=== PATIENT | male | born 1955 | race Hispanic/Latino ===

== ENCOUNTER 2023-10-26 23:55 | Emergency (ER) | payer OTHER ==
--- OUTSIDE RECORDS SUMMARY | 2023-10-26 23:58 | XMS REPORT | Continuity of Care Document ---
Author Name Unknown Address [address] [facility] [address] [place] [address] [facility] thconnect Address 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 Exposure to SARS-CoV-2 (event) 2019-12-16 00:00:00 2020-01-15 10:23:00 Not sure [facility] Sex Assigned At 1955 00:00:00 1955 00:00:00 [facility] Smoking Status Start Date Stop Date Source Tobacco smoking consumption unknown [facility] Encounters Start Date/Time End Date/Time Encounter Type Admission Type Attending Clinicians Care Facility Care Department Encounter ID Source 2023-10-16 13:20:53 2023-10-16 13:20:53 Outpatient [facility] [id number] Jayce Xiao 2023-09-30 15:18:26 2023-09-30 15:18:26 Outpatient S[facility] [id number] [id number] Jayce Xiao 2023-08-14 16:17:34 2023-08-14 16:17:34 Outpatient SFA SFA [id number] Jayce Xiao 2023-06-24 08:40:56 2023-06-24 08:40:[address] [facility] [id number] Jayce Xiao 2022-12-21 07:10:25 2022-12-21 07:10:[address] [facility] [id number] Jayce Xiao 2020-01-18 00:00:00 2020-01-18 00:00:00 Patient Secure Msg Doctor Unassigned, Wickes [facility] [id number] [facility] 2020-01-15 14:20:00 2020-01-15 14:20:00 Outpatient [facility] [id number] [facility]
[2023-10-27] MEDS ORDERED: ASPIRIN 81 MG CHEWABLE TABLET ONE (00:48)
[2023-10-27] MEDS ORDERED: ONDANSETRON 4 MG/2 ML VIAL ONE (00:48)
[2023-10-27] MEDS ORDERED: MORPHINE 4 MG/ML SYR ONE (00:49)
[2023-10-27] MEDS ORDERED: DIAZEPAM 5 MG TABLET ONE (00:49)
[2023-10-27 00:51] LABS: Absolute Eosinophils 0.1 K/uL (0-0.5); Absolute Lymphocytes (CBC) 2.7 K/uL (0.7-4.9); Absolute Monocytes 0.6 K/uL (0.1-1.3); Absolute Neutrophil 3.8 K/uL (1.8-8.0); Basophils % 0.5 % (0-1.3); Eosinophils % 1.2 % (0-4.4); Hematocrit 47.9 % (39.6-49.0); Hemoglobin 16.3 g/dL (13.6-17.9); Lymphocytes % 37.3 % (15.3-44.8); MCH 30.5 pg (27.0-35.0); MCV 89.7 fL (80-100); MPV 8.8 fL (7.6-11.3); Monocytes % 7.7 % (3.3-12.3); Neutrophils % 53.3 % (41.7-73.7); Nucleated Red Blood Cells % 0.1 % (0-0); Platelets 189 thou/uL (152-406); RBC Red Blood Cell Count 5.35 M/uL (4.33-5.43); Red Cell Distribution Width 14.3 % (12.1-15.2)
[2023-10-27 00:58] LABS: PT Prothrombin Time 11.9 SECONDS (9.5-12.5); Protime INR 1.08
[2023-10-27 01:13] LABS: Albumin 3.9 g/dL (3.4-5.0); Albumin/Globulin Ratio 1.1 (1.1-1.8); Anion Gap 9.8 mEq/L (5.0-15.0); Bilirubin Direct 0.2 mg/dL (0-0.2); Bilirubin Indirect, Calculated 0.5 mg/dL (0.2-0.8); Bilirubin Total 0.7 mg/dL (0.2-1.0); Globulin 3.5 g/dL (2.3-3.5); Magnesium 2.1 mg/dL (1.6-2.4); Potassium 3.8 mEq/L (3.5-5.1); Protein, Total 7.4 g/dL (6.4-8.2); Troponin High Sensitivity 6.6 pg/mL (<58.9)
--- NOTE | 2023-10-27 05:57 | ER ---
Nurse's Notes [facility] Name: Aakash Weaver Age: 68 yrs Sex: Male : 1955 Arrival Date: 10/26/2023 Time: 23:55 Bed 13 Private MD: Diagnosis: Tension-type headache;Chest pain, unspecified Presentation: 10/26 00:02 Chief complaint: Patient states: chest pain and pressure. Tingling to left side of face vc1 and left arm. Coronavirus screen: At this time, the client does not indicate any symptoms associated with coronavirus-19. Ebola Screen: Patient negative for fever greater than or equal to 101.5 degrees Fahrenheit, and additional compatible Ebola Virus Disease symptoms Patient denies exposure to infectious person. Patient denies travel to an Ebola-affected area in the 21 days before illness onset. No symptoms or risks identified at this time. Risk Assessment: Do you want to hurt yourself or someone else? Patient reports no desire to harm self or others. Onset of symptoms was October 26, 2023. 00:02 Method Of Arrival: Ambulatory vc1 00:02 Acuity: JOSE ENRIQUE 3 vc1 00:06 Initial Sepsis Screen: Does the patient meet any 2 criteria? No. Patient's initial vc1 sepsis screen is negative. Does the patient have a suspected source of infection? No. Patient's initial sepsis screen is negative. Triage Assessment: 00:04 General: Appears in no apparent distress. uncomfortable, Behavior is calm, cooperative, vc1 appropriate for age. Pain: Complains of pain in anterior aspect of left upper chest Pain does not radiate. Pain currently is 8 out of 10 on a pain scale. Quality of pain is described as pressure, Is continuous, Also complains of shortness of breath. Neuro: Level of Consciousness is awake, alert, obeys commands, Tingling in left cheek and left arm. Cardiovascular: Capillary refill < 3 seconds Patient's skin is warm and dry. Respiratory: Airway is patent Respiratory effort is even, unlabored, Respiratory pattern is regular, symmetrical. Musculoskeletal: Denies weakness in left arm and left leg numbness in, left cheek and left arm. Historical: - Allergies: 00:03 No Known Allergies; vc1 - Home Meds: 00:03 levothyroxine 88 mcg capsule [Active]; mirtazapine 15 mg Oral tablet [Active]; vc1 - PMHx: 00:03 Hypothyroidism; Depressive disorder; vc1 - PSHx: 00:03 None; vc1 - Immunization history:: Client reports receiving the 2nd dose of the Covid vaccine, Flu vaccine is up to date. - Infectious Disease History:: Denies. - Social history:: Smoking status: Patient denies any tobacco usage or history of. - Family history:: not pertinent. Screenin:01 Abuse screen: Denies threats or abuse. Denies injuries from another. Nutritional ha1 screening: No deficits noted. Tuberculosis screening: No symptoms or risk factors identified. 04:10 [facility] ED Fall Risk Assessment (Adult) History of falling in the last 3 months, ha1 including since admission No falls in past 3 months (0 pts) Confusion or Disorientation No (0 pts) Intoxicated or Sedated No (0 pts) Impaired Gait No (0 pts) Mobility Assist Device Used No (0 pt) Altered Elimination No (0 pt) Score/Fall Risk Level 0 - 2 = Low Risk Oriented to surroundings, Maintained a safe environment, Educated pt \T\ family on fall prevention, incl call for assistance when getting out of bed, Hourly rounding (assess needs \T\ fall precautionary measures) done. Assessment: 00:08 General: Appears comfortable, Behavior is calm, cooperative. Pain: Complains of pain in ha1 chest Pain radiates to left arm Pain currently is 8 out of 10 on a pain scale. Quality of pain is described as pressure, Pain began suddenly. Neuro: Level of Consciousness is awake, alert, obeys commands, Oriented to person, place, time, situation. Cardiovascular: Reports chest pain, Capillary refill < 3 seconds Patient's skin is warm and dry. Rhythm is sinus bradycardia. Respiratory: Airway is patent Respiratory effort is even, unlabored, Respiratory pattern is regular, symmetrical. Derm: Skin is pink, warm \T\ dry. Musculoskeletal: Circulation, motion, and sensation intact. 00:55 Reassessment: GOING TO CT. ha1 01:20 Reassessment: Patient and/or family updated on plan of care and expected duration. Pain ha1 level reassessed. Patient is alert, oriented x 3, equal unlabored respirations, skin warm/dry/pink. BACK FROM CT. 02:04 Reassessment: Patient and/or family updated on plan of care and expected duration. Pain ha1 level reassessed. Patient is alert, oriented x 3, equal unlabored respirations, skin warm/dry/pink. Patient states feeling better. Patient states symptoms have improved. 03:00 Reassessment: Patient and/or family updated on plan of care and expected duration. Pain ha1 level reassessed. Patient is alert, oriented x 3, equal unlabored respirations, skin warm/dry/pink. PAIN 2/10. 04:00 Reassessment: Patient and/or family updated on plan of care and expected duration. Pain ha1 level reassessed. Patient is alert, oriented x 3, equal unlabored respirations, skin warm/dry/pink. Patient denies pain at this time. Patient states feeling better. Patient states symptoms have improved. 04:55 Reassessment: Patient and/or family updated on plan of care and expected duration. Pain ha1 level reassessed. Patient is alert, oriented x 3, equal unlabored respirations, skin warm/dry/pink. Patient denies pain at this time. Patient states feeling better. Patient states symptoms have improved. 06:06 Reassessment: Patient appears in no apparent distress at this time. No changes from vc1 previously documented assessment. Patient and/or family updated on plan of care and expected duration. Pain level reassessed. Patient is alert, oriented x 3, equal unlabored respirations, skin warm/dry/pink. Vital Signs: 00:06 BP 124 / 78; Pulse 60; Resp 18; Temp 97.4; Pulse Ox 100% ; vc1 00:40 BP 136 / 75; Pulse 55; Resp 17 S; Pulse Ox 99% on R/A; ha1 02:00 BP 101 / 70; Pulse 48; Resp 18; Pulse Ox 97% on R/A; ha1 03:00 BP 124 / 74; Pulse 45; Resp 17 S; Pulse Ox 99% on R/A; ha1 04:00 BP 118 / 76; Pulse 48; Resp 17 S; Pulse Ox 98% on R/A; ha1 05:03 BP 126 / 75; Pulse 51; Resp 16 S; Pulse Ox 98% on R/A; ha1 06:00 BP 106 / 63; Pulse 50; Resp 16; Pulse Ox 96% ; vc1 Gil Coma Score: 05:54 Eye Response: spontaneous(4). Motor Response: obeys commands(6). Verbal Response: sp4 oriented(5). Total: 15. NIH Stroke Scale Scores: 05:54 NIHSS Score: 0 sp4 ED Course: 00:01 Patient arrived in ED. vc1 00:02 Ridge Saunders MD is Attending Physician. sp4 00:03 Triage completed. vc1 00:04 Arm band placed on right wrist. vc1 00:08 Patient has correct armband on for positive identification. Placed in gown. Bed in low ha1 position. Call light in reach. Side rails up X 1. 00:08 Client placed on continuous cardiac and pulse oximetry monitoring. NIBP monitoring ha1 applied. tapper shank on. Door closed. Noise minimized. Warm blanket given. 00:15 EKG completed in triage. Results shown to MD. ha1 00:15 EKG done, by ED staff, reviewed by Ridge Saunders MD. ha1 00:20 Kylah Garber, RN is Primary Nurse. ha1 00:30 Inserted saline lock: 20 gauge in right antecubital area, using aseptic technique. ha1 Blood collected. 00:59 XRAY Chest (1 view) In Process Unspecified. EDMS 00:59 Basic Metabolic Panel Sent. ha1 00:59 LFT's Sent. ha1 00:59 Magnesium Sent. ha1 00:59 NT PRO-BNP Sent. ha1 00:59 Troponin HS Sent. ha1 01:11 CT Head Brain wo Cont In Process Unspecified. EDMS 05:04 Troponin High Sensitivity Sent. ha1 06:06 No provider procedures requiring assistance completed. IV discontinued, intact, vc1 bleeding controlled, No redness/swelling at site. Pressure dressing applied. 06:07 Provided Education on: f/u with PCP. vc1 Administered Medications: 00:45 Drug: Ondansetron IVP 4 mg IVP once; over 2 minutes Route: IVP; Site: right antecubital;ha1 01:00 Follow up: Response: No adverse reaction; Marked relief of symptoms ha1 00:47 Drug: morphine IVP or IV 4 mg IVP once over 4 mins Route: IVP; Infused Over: 4 mins; ha1 Site: right antecubital; 01:00 Follow up: Response: No adverse reaction; Marked relief of symptoms; Pain is decreased; ha1 RASS: Alert and Calm (0) 00:49 Drug: Aspirin PO Chewable Tablet 324 mg PO once; 81 mg tablets x 4 Route: PO; ha1 02:00 Follow up: Response: No adverse reaction; Marked relief of symptoms ha1 00:50 Drug: Diazepam PO 5 mg PO once Route: PO; ha1 01:10 Follow up: Response: No adverse reaction; Marked relief of symptoms ha1 Medication: 04:10 VIS not applicable for this client. ha1 Outcome: 05:56 Discharge ordered by MD. potts 06:06 Discharged to home ambulatory, vc1 06:06 Condition: good 06:06 Discharge instructions given to patient, Instructed on discharge instructions, follow up and referral plans. medication usage, Demonstrated understanding of instructions, follow-up care, medications, Prescriptions given X 2, 06:07 Patient left the ED. vc1 NIH Stroke Scale - NIH Stroke Score Date: 10/27/2023 Time: 05:54 Total Score = 0 10. Dysarthria (speech clarity - read or repeat words) - 0(Normal) 11. Extinction and Inattention (visual/tactile/auditory/spatial/personal) - 0(No abnormality) 1a. Level of Consciousness (LOC) - 0(Alert) 1b. Level of Consciousness (LOC) (Month \T\ Age) - 0(Both) 1c. LOC Commands (Open \T\ Closes Eyes/President & Founder) - 0(Both) 2. Best Gaze (Lateral Gaze Paresis) - 0(Normal) 3. Visual Field Loss - 0(No visual loss) 4. Facial Palsy - 0(Normal) 5a. Left Arm: Motor (10-second hold) - 0(No drift) 5b. Right Arm: Motor (10-second hold) - 0(No drift) 6a. Left Leg: Motor (5-second hold - always test supine) - 0(No drift) 6b. Right Leg: Motor (5-second hold - always test supine) - 0(No drift) 7. Limb Ataxia (finger/nose \T\ heel/perdomo - test with eyes open) - 0(Absent) 8. Sensory Loss (pinprick arms/legs/face) - 0(Normal) 9. Best Language: Aphasia (description/naming/reading) - 0(No aphasia) Initials: sp4 Signatures: Dispatcher [employer] EDMS Anastasia Olson RN RN vc1 Kylah Garber RN RN ha1 Ridge Saunders MD MD sp4 Corrections: (The following items were deleted from the chart) 00:04 00:03 Home Meds: None; vc1 vc1 00:04 00:03 PMHx: None; vc1 vc1 02:04 01:01 BP 136 / 75; Pulse 55bpm; Resp 17bpm; Spontaneous; Pulse Ox 99% RA; ha1 ha1
--- NOTE | 2023-10-27 05:57 | EDPHYS ---
Physician Documentation [facility] Name: Aakash Weaver Age: 68 yrs Sex: Male : 1955 Arrival Date: 10/26/2023 Time: 23:55 Bed 13 Private MD: ED Physician Ridge Saunders HPI: 10/26 04:23 This 68 yrs old Male presents to ER via Ambulatory with complaints of left arm sp4 numbness and chest pain . 19:06 68-year-old male complains of chest discomfort and left arm numbness. This started sp4 yesterday.. Historical: - Allergies: 00:03 No Known Allergies; vc1 - Home Meds: 00:03 levothyroxine 88 mcg capsule [Active]; mirtazapine 15 mg Oral tablet [Active]; vc1 - PMHx: 00:03 Hypothyroidism; Depressive disorder; vc1 - PSHx: 00:03 None; vc1 - Immunization history:: Client reports receiving the 2nd dose of the Covid vaccine, Flu vaccine is up to date. - Infectious Disease History:: Denies. - Social history:: Smoking status: Patient denies any tobacco usage or history of. - Family history:: not pertinent. ROS: 19:06 Constitutional: Negative for fever, chills, and weight loss, positive for chest sp4 pressure and left arm numbness 19:06 All other systems are negative, Exam: 04:25 ECG was reviewed by the Attending Physician. EKG at 0034, sinus bradycardia with a rate sp4 of 52 05:54 Constitutional: This is a well developed, well nourished patient who is awake, alert, sp4 and in no acute distress. Head/Face: Normocephalic, atraumatic. Eyes: Pupils equal round and reactive to light, extra-ocular motions intact. Lids and lashes normal. Conjunctiva and sclera are not injected. Cornea within normal limits. Periorbital areas with no swelling, redness, or edema. ENT: Nares patent. No nasal discharge, no septal abnormalities noted. Tympanic membranes are normal and external auditory canals are clear. Oropharynx with no redness, swelling, or masses, exudates, or evidence of obstruction, uvula midline. Mucous membranes moist. Neck: Trachea midline, no thyromegaly or masses palpated, and no cervical lymphadenopathy. Supple, full range of motion without nuchal rigidity, or vertebral point tenderness. Chest/axilla: Normal chest wall appearance and motion. Nontender with no deformity. No lesions are appreciated. Cardiovascular: Regular rate and rhythm with a normal S1 and S2. No gallops, murmurs, or rubs. Normal PMI, no JVD. No pulse deficits. Respiratory: Lungs have equal breath sounds bilaterally, clear to auscultation and percussion. No rales, rhonchi or wheezes noted. No increased work of breathing, no retractions or nasal flaring. Abdomen/GI: Soft, with normal bowel sounds. No distension or tympany. No guarding or rebound. No evidence of tenderness throughout. Back: No spinal tenderness. No costovertebral tenderness. Skin: Warm, dry with normal turgor. Normal color with no rashes, no lesions, and no evidence of cellulitis. MS/ Extremity: Pulses equal, no cyanosis. Neurovascular intact. Full, normal range of motion. Neuro: Awake and alert, GCS 15, oriented to person, place, time, and situation. Cranial nerves II-XII grossly intact. Motor strength 5/5 in all extremities. Sensory grossly intact. Psych: Awake, alert, with orientation to person, place and time. Behavior, mood, and affect are within normal limits Vital Signs: 00:06 BP 124 / 78; Pulse 60; Resp 18; Temp 97.4; Pulse Ox 100% ; vc1 00:40 BP 136 / 75; Pulse 55; Resp 17 S; Pulse Ox 99% on R/A; ha1 02:00 BP 101 / 70; Pulse 48; Resp 18; Pulse Ox 97% on R/A; ha1 03:00 BP 124 / 74; Pulse 45; Resp 17 S; Pulse Ox 99% on R/A; ha1 04:00 BP 118 / 76; Pulse 48; Resp 17 S; Pulse Ox 98% on R/A; ha1 05:03 BP 126 / 75; Pulse 51; Resp 16 S; Pulse Ox 98% on R/A; ha1 06:00 BP 106 / 63; Pulse 50; Resp 16; Pulse Ox 96% ; vc1 NIH Stroke Scale Scores: 05:54 NIHSS Score: 0 sp4 Gil Coma Score: 05:54 Eye Response: spontaneous(4). Motor Response: obeys commands(6). Verbal Response: sp4 oriented(5). Total: 15. MDM: 00:05 Patient medically screened. sp4 04:23 ED course: EXAM: CT Head Without Intravenous Contrast CLINICAL HISTORY: The patient is sp4 68 years old and is Male; NUMBNESS TECHNIQUE: Axial computed tomography images of the head/brain without intravenous contrast. Sagittal and coronal reformatted images were created and reviewed. This CT exam was performed using one or more of the following dose reduction techniques: automated exposure control, adjustment of the mA and/or kV according to patient size, and/or use of iterative reconstruction technique. COMPARISON: No relevant prior studies available. FINDINGS: BRAIN: Unremarkable. The song-white matter differentiation is preserved . No hemorrhage. No significant white matter disease. No edema. No extra-axial fluid collections. VENTRICLES: Unremarkable. No ventriculomegaly. BONES/JOINTS: No acute fracture. SOFT TISSUES: Unremarkable. SINUSES: Unremarkable as visualized. No acute sinusitis. MASTOID AIR CELLS: Unremarkable as visualized. No mastoid effusion. ORBITS: Unremarkable as visualized. IMPRESSION: No acute intracranial findings. 04:24 ED course: EXAM: XR Chest, 1 View CLINICAL HISTORY: The patient is 68 years old and is sp4 Male; CHEST PAIN TECHNIQUE: Frontal view of the chest. COMPARISON: No relevant prior studies available. FINDINGS: LUNGS: Unremarkable. No consolidation. PLEURAL SPACE: Unremarkable. No pneumothorax. HEART: Unremarkable. No cardiomegaly. MEDIASTINUM: Unremarkable. Normal mediastinal contour. BONES/JOINTS: Unremarkable. No acute fracture. VASCULATURE: Atherosclerosis of the aorta is present. UPPER ABDOMEN: Unremarkable as visualized. IMPRESSION: No acute cardiopulmonary process. . 19:06 Differential Diagnosis altered mental status, sepsis, flu, ACS . Data reviewed: vital sp4 signs, nurses notes. ED course: Stable for discharge home no signs of ACS no signs of acute stroke. . 10/26 00:03 Order name: Basic Metabolic Panel; Complete Time: : sp4 10/26 00:03 Order name: CBC with Diff; Complete Time: : sp4 10/26 00:03 Order name: LFT's; Complete Time: : sp4 10/26 00:03 Order name: Magnesium; Complete Time: : sp4 10/26 00:03 Order name: NT PRO-BNP; Complete Time: : sp4 10/26 00:03 Order name: PT-INR; Complete Time: 04:22 4 10/26 00:03 Order name: Troponin HS; Complete Time: 04:22 4 10/26 04:26 Order name: Troponin High Sensitivity; Complete Time: 05:48 4 10/26 00:03 Order name: XRAY Chest (1 view) [facility] 10/26 00:03 Order name: CT Head Brain wo Cont 4 10/26 00:03 Order name: EKG; Complete Time: 00:03 [facility] 10/26 00:03 Order name: Cardiac monitoring; Complete Time: 00:56 [facility] 10/26 00:03 Order name: EKG - Nurse/Tech; Complete Time: 00:56 [facility] 10/26 00:03 Order name: IV Saline Lock; Complete Time: 00:56 [facility] 10/26 00:03 Order name: Labs collected and sent; Complete Time: 00:56 [facility] 10/26 00:03 Order name: O2 Per Protocol; Complete Time: 00:56 [facility] 10/26 00:03 Order name: O2 Sat Monitoring; Complete Time: 00:56 4 EC:25 Rate is 52 beats/min. Rhythm is regular, Sinus bradycardia. QRS Hamer is Normal. NE sp4 interval is normal. QRS interval is normal. QT interval is normal. No Q waves. T waves are Normal. Clinical impression: No evidence of ischemia. Interpreted by me. Reviewed by me. Administered Medications: 00:45 Drug: Ondansetron IVP 4 mg IVP once; over 2 minutes Route: IVP; Site: right antecubital;ha1 01:00 Follow up: Response: No adverse reaction; Marked relief of symptoms ha1 00:47 Drug: morphine IVP or IV 4 mg IVP once over 4 mins Route: IVP; Infused Over: 4 mins; ha1 Site: right antecubital; 01:00 Follow up: Response: No adverse reaction; Marked relief of symptoms; Pain is decreased; ha1 RASS: Alert and Calm (0) 00:49 Drug: Aspirin PO Chewable Tablet 324 mg PO once; 81 mg tablets x 4 Route: PO; ha1 02:00 Follow up: Response: No adverse reaction; Marked relief of symptoms ha1 00:50 Drug: Diazepam PO 5 mg PO once Route: PO; ha1 01:10 Follow up: Response: No adverse reaction; Marked relief of symptoms ha1 Disposition Summary: 10/27/23 05:56 Discharge Ordered Notes: Location: Home sp4 Problem: new sp4 Symptoms: have improved sp4 Condition: Stable sp4 Diagnosis - Tension-type headache sp4 - Chest pain, unspecified sp4 Followup: sp4 - With: Private Physician - When: 7 - 10 days - Reason: Recheck today's complaints Discharge Instructions: - Discharge Summary Sheet sp4 - Nonspecific Chest Pain, Adult, [id number] sp4 Forms: - Patient Portal Instructions sp4 Prescriptions: - Fioricet 50-300-40 mg Oral capsule - take 1 capsule ORAL route 3 times per day as needed for pain; 30 capsule; sp4 Refills: 0, Product Selection Permitted - ondansetron 8 mg Oral Tablet,disintegrating - take 1 tablet ORAL route every 8 hours PRN nausea; 30 tablet; Refills: 0, sp4 Product Selection Permitted NIH Stroke Scale - NIH Stroke Score Date: 10/27/2023 Time: 05:54 Total Score = 0 10. Dysarthria (speech clarity - read or repeat words) - 0(Normal) 11. Extinction and Inattention (visual/tactile/auditory/spatial/personal) - 0(No abnormality) 1a. Level of Consciousness (LOC) - 0(Alert) 1b. Level of Consciousness (LOC) (Month \T\ Age) - 0(Both) 1c. LOC Commands (Open \T\ Closes Eyes/Consumer Studies Professor) - 0(Both) 2. Best Gaze (Lateral Gaze Paresis) - 0(Normal) 3. Visual Field Loss - 0(No visual loss) 4. Facial Palsy - 0(Normal) 5a. Left Arm: Motor (10-second hold) - 0(No drift) 5b. Right Arm: Motor (10-second hold) - 0(No drift) 6a. Left Leg: Motor (5-second hold - always test supine) - 0(No drift) 6b. Right Leg: Motor (5-second hold - always test supine) - 0(No drift) 7. Limb Ataxia (finger/nose \T\ heel/perdomo - test with eyes open) - 0(Absent) 8. Sensory Loss (pinprick arms/legs/face) - 0(Normal) 9. Best Language: Aphasia (description/naming/reading) - 0(No aphasia) Initials: sp4 Signatures: Dispatcher [employer] EDMS Anastasia Olson, RN RN vc1 Kylah Garber RN RN ha1 Ridge Saunders MD MD sp4 Corrections: (The following items were deleted from the chart) 00:03 00:03 BASIC METABOLIC PANEL+C.LAB.BRZ ordered. EDMS EDMS 00:03 00:03 CBC+H.LAB.BRZ ordered. EDMS EDMS 00:03 00:03 HEPATIC FUNCTION+C.LAB.BRZ ordered. EDMS EDMS 00:03 00:03 MAGNESIUM+C.LAB.BRZ ordered. EDMS EDMS 00:03 00:03 PROBNP+C.LAB.BRZ ordered. EDMS EDMS 00:03 00:03 PROTIME (+INR)+COAG.LAB.BRZ ordered. EDMS EDMS 00:03 00:03 Troponin High Sensitivity+C.LAB.BRZ ordered. EDMS EDMS 00:04 00:03 Home Meds: None; vc1 vc1 00:04 00:03 PMHx: None; vc1 vc1
[2023-10-27 06:30] VITALS: BP 106/63; TEMP 97.4; O2SAT 96
--- NOTE | 2023-10-27 20:45 | RAD REPORT ---
EXAM DESCRIPTION: RAD - Chest Single View - 10/27/2023 12:57 am CLINICAL HISTORY: The patient is 68 years old and is Male; CHEST PAIN TECHNIQUE: Frontal view of the chest. COMPARISON: No relevant prior studies available. FINDINGS: LUNGS: Unremarkable. No consolidation. PLEURAL SPACE: Unremarkable. No pneumothorax. HEART: Unremarkable. No cardiomegaly. MEDIASTINUM: Unremarkable. Normal mediastinal contour. BONES/JOINTS: Unremarkable. No acute fracture. VASCULATURE: Atherosclerosis of the aorta is present. UPPER ABDOMEN: Unremarkable as visualized. IMPRESSION: No acute cardiopulmonary process. Electronically signed by: Cassi Gonzalez MD 10/27/2023 01:19 AM CDT Due to temporary technical issues with the PACS/Fluency reporting system, reports are being signed by the in house radiologists without review as a courtesy to insure prompt reporting. The interpreting radiologist is fully responsible for the content of the report.
--- NOTE | 2023-10-27 20:55 | RAD REPORT ---
EXAM DESCRIPTION: CT - Head Brain Wo Cont - 10/27/2023 6:53 am CLINICAL HISTORY: The patient is 68 years old and is Male; NUMBNESS TECHNIQUE: Axial computed tomography images of the head/brain without intravenous contrast. Sagitt al and coronal reformatted images were created and reviewed. This CT exam was performed using one o r more of the following dose reduction techniques: automated exposure control, adjustment of the mA and/or kV according to patient size, and/or use of iterative reconstruction technique. COMPARISON: No relevant prior studies available. FINDINGS: BRAIN: Unremarkable. The song-white matter differentiation is preserved . No hemorrhag e. No significant white matter disease. No edema. No extra-axial fluid collections. VENTRICLES: Unremarkable. No ventriculomegaly. BONES/JOINTS: No acute fracture. SOFT TISSUES: Unremarkable. SINUSES: Unremarkable as visualized. No acute sinusitis. MASTOID AIR CELLS: Unremarkable as visualized. No mastoid effusion. ORBITS: Unremarkable as visualized. IMPRESSION: No acute intracranial findings. Electronically signed by: Cassi Gonzalez MD 10/27/2023 01:21 AM CDT Due to temporary technical issues with the PACS/Fluency reporting system, reports are being signed by the in house radiologists without review as a courtesy to insure prompt reporting. The interpreting radiologist is fully responsible for the content of the report.
== END 2023-10-27 06:07 | disposition home or self-care (01) ==
LOC: ER 23:55
DX: G44.209 Tension-type headache, unspecified, not intractable (principal); R07.89 Other chest pain; E03.9 Hypothyroidism, unspecified; F32.A Depression, unspecified
CPT/HCPCS: 93005; 85025; 80048; 36415; 83735; 85610; 80076; 84484 ×2; 83880; 70450; 71045; 96375; 96374; 99285; J2405